=== PATIENT | male | born 1975 | race Caucasian/White ===

== ENCOUNTER 2017-08-18 15:19 | Emergency (ER) | payer OTHER ==
[2017-08-18] MEDS: KETOROLAC 60 MG/2 ML VIAL (J1885) IM (16:00)
[2017-08-18] MEDS: PERCOCET 5MG/325MG TAB PO (16:18)
[2017-08-18] MEDS: LIDOCAINE 1% MDV 20ML VIAL IM (17:00)
[2017-08-18] MEDS: MORPHINE 4 MG/ML 1ML SYRINGE IV ×2 (17:45→17:58)
[2017-08-18] MEDS ORDERED: MORPHINE 10 MG/ML 1ML VIAL As Ordered (18:21)
[2017-08-18] MEDS: MORPHINE 10 MG/ML 1ML VIAL IM (18:26)
== END 2017-08-18 20:26 | disposition home or self-care (01) ==
LOC: M ED 15:19
DX: S52.592A Other fractures of lower end of left radius, initial encounter for closed fracture (principal); W00.9XXA Unspecified fall due to ice and snow, initial encounter; Y92.9 Unspecified place or not applicable; Y93.9 Activity, unspecified; G89.29 Other chronic pain; M54.9 Dorsalgia, unspecified; M54.2 Cervicalgia; Z79.899 Other long term (current) drug therapy; Z88.5 Allergy status to narcotic agent
CPT/HCPCS: J1885

== ENCOUNTER 2023-05-31 07:15 | Day surgery (SDC) | payer MEDICARE, OTHER ==
[~2023-05-31] VITALS: Ht 177.8 cm; Wt 100.2 kg
[~2023-05-31 07:15] MED LIST: CIPR-249 PO; FLOM0.4C39 PO; METH-1164 PO; METH4PACK PO; PERC5TAB12 PO; PERCOCET PO; SENO8.6T10 PO; VITMTA PO; ceFAZolin SOD 2 GM in IV 1 EA IV ONE
[2023-05-31] MEDS ORDERED: LR 1,000 ML IV SCH (07:55)
[2023-05-31] MEDS ORDERED: MIDAZOLAM INJ 2MG/2ML VIAL As Ordered ONE (09:39)
[2023-05-31] MEDS ORDERED: fentaNYL 100 MCG/2 ML INJECTION As Ordered ONE (09:39)
[2023-05-31] MEDS ORDERED: LIDOCAINE 2% 100MG/5ML SDV (FOR ANES.) As Ordered ONE (09:41)
[2023-05-31] MEDS ORDERED: ACETAMINOPHEN 1000MG 100ML IV BAG As Ordered ONE (09:59)
[2023-05-31] MEDS ORDERED: propofoL 200 MG/20 ML VIAL As Ordered ONE (10:00)
[2023-05-31 11:40] VITALS: BP 141/84; TEMP 97.7; O2SAT 97
== END 2023-05-31 11:42 | disposition home or self-care (01) ==
LOC: M SDC 07:15
PROVIDERS: ATTEND Urology
DX: N13.2 Hydronephrosis with renal and ureteral calculous obstruction (principal); F43.10 Post-traumatic stress disorder, unspecified; F41.9 Anxiety disorder, unspecified; G47.33 Obstructive sleep apnea (adult) (pediatric); Z79.899 Other long term (current) drug therapy; Z88.5 Allergy status to narcotic agent; F12.10 Cannabis abuse, uncomplicated
CPT/HCPCS: 50590; 74018; J0131; J2250; J3010

== ENCOUNTER → 2023-06-20 | Outpatient (REF) | payer MEDICARE, OTHER ==
[~2023-06-20] MED LIST changes: -ceFAZolin SOD 2 GM in IV 1 EA IV ONE
== END ==
LOC: M SMT 16:50
PROVIDERS: ATTEND Urology
DX: N20.0 Calculus of kidney (principal)